=== PATIENT | male | born 1970 | race Two or more races ===

== ENCOUNTER 2019-02-19 17:51 | Emergency (ER) | payer OTHER ==
[2019-02-19] MEDS ORDERED: MORPHINE SULFATE 10 MG/ML INJ IV ONE (20:12)
[2019-02-19] MEDS ORDERED: DEXAMETHASONE SOD PHOS INJ 10 MG/1 ML VIAL IM ONE (20:12)
[2019-02-19] MEDS ORDERED: HYDROCODONE/ACETAMINOPHEN 5-325 MG (6 TAB/ER DISP) PO PRN (20:13)
--- NOTE | 2019-02-19 20:15 | ER Document Report ---
HPI - HPI Time Seen by Provider: 02/19/19 19:36 Pain Level: 3 Context: Patient is a 48-year-old male who presents the emergency department with sciatic nerve pain. Patient is primarily [place]i-speaking and [employer] body cleaner #[id number] was used for interpretation. States the pain is mainly on the left side. He was at work on January 26 and he lifted an iron pipe and injured his back. He states he is able to walk. He has no numbness or tingling. He states that the pain radiates down to his left foot. He has been seen in [place] on 3 different occasions at the emergency department and he has been taking Flexeril and other medications, with little relief. Patient states that he is able to walk. Denies any bladder or bowel dysfunction. - ROS Systems Reviewed and Negative: Yes All other systems reviewed and negative - CONSTITUTIONAL Constitutional: DENIES: Fever, Chills - MUSCULOSKELETAL Musculoskeletal: REPORTS: Extremity pain - Left leg, Back Pain - Left back that radiates down left leg. DENIES: Neck Pain, Swelling - DERM Skin Color: Normal Skin Problems: None Past Medical History - Social History Smoking Status: Unknown if Ever Smoked Family History: Reviewed & Not Pertinent Vertical Provider Document - CONSTITUTIONAL Agree With Documented VS: Yes Exam Limitations: No Limitations General Appearance: No Apparent Distress - INFECTION CONTROL TRAVEL OUTSIDE OF THE [place] IN LAST 30 DAYS: Yes - HEENT HEENT: Atraumatic, Conjuctival Injection - NECK Neck: Normal Inspection, Supple - RESPIRATORY Respiratory: Breath Sounds Normal, No Respiratory Distress - CARDIOVASCULAR Cardiovascular: Regular Rate, Regular Rhythm, No Murmur Pulses: Normal: Radial - MUSCULOSKELETAL/EXTREMETIES Musculoskeletal/Extremeties: Tender - Left low back left leg, No Edema. negative: FROM - Decreased range of motion on the left lower extremity due to pain, Eccymosis - NEURO Level of Consciousness: Awake, Alert, Appropriate Motor/Sensory: No Motor Deficit, No Sensory Deficit - DERM Integumentary: Warm, Dry, No Rash Course - Re-evaluation Re-evalutation: 02/19/19 20:15 I had a very long conversation with the patient in regards to filing Workmen's Compensation with his company, as he has not filled out Workmen's Comp. He agreed that he will fill out his Workmen's Compensation paperwork. I will give him a dose of Decadron and morphine here in the emergency department. He also stated that he did receive some Percocets from the hospital in [place], which helped a lot. I will send him home with a Sunol Dosepak but I told him to be careful and to make sure that he only takes the Sunol when he is in severe pain. I have also advised him to continue taking ibuprofen and Tylenol. He is in agreement with this plan. I do not suspect patient has any life-threatening etiology at this time. I do not suspect suspect cauda equina syndrome or epidural abscess. - Vital Signs Vital signs: Temp Pulse Resp BP Pulse Ox 98.4 F 87 16 121/82 95 02/19/19 18:08 02/19/19 18:08 02/19/19 18:08 02/19/19 18:08 02/19/19 18:08 Discharge - Discharge Clinical Impression: Left sided sciatica Condition: Stable Disposition: HOME, SELF-CARE Instructions: Ice Packs ([facility]), Low Back Pain ([facility]), Warm Packs ([facility]) Additional Instructions: You were seen today in the emergency department for low back pain. Your low back pain is sciatic nerve pain. Please fill out the Workmen's Compensation forms from your work. Please go to the company that is contracted with your work. You received Decadron, a steroid and morphine, a pain medication here in the emergency department. You are also being sent home with Sunol, a pain medication. Please only take this medication for severe pain. Please continue ibuprofen 600 mg and Tylenol 1000 mg every 6 hours for your pain. If you are unable to walk or have any symptoms that are worrisome to you, please return to the emergency department. Print Language: [place]raini
[2019-02-19] MEDS ORDERED: MORPHINE SULFATE 10 MG/ML INJ IM ONE (20:20)
[2019-02-19 20:58] VITALS: BP 127/81
== END 2019-02-19 20:56 | disposition home or self-care (01) ==
LOC: EDBD → ER 17:51
DX: M54.32 Sciatica, left side (principal); M54.9 Dorsalgia, unspecified; X50.0XXA Overexertion from strenuous movement or load, initial encounter; Y99.0 Civilian activity done for income or pay
CPT/HCPCS: 99283; 96372; 96374; J2270; J1100